=== PATIENT | male | born 1990 | race Caucasian/White ===

== ENCOUNTER → 2018-02-09 | Outpatient (CLI) | payer OTHER ==
--- NOTE | 2018-02-09 15:49 | RADIOLOGY IMAGING REPORT ---
FACILITY: [facility] - [place] PATIENT NAME: Gregorio Hernandez : 1990 MR: [id number] V: [id number] EXAM DATE: ORDERING PHYSICIAN: QAMAR STEVENS TECHNOLOGIST: Location: [facility] Patient: Gregorio Hernandez : 1990 Visit/Account:[id number] Date of Sevice: 02/09/2018 2 VIEWS CHEST INDICATION: Sternal pain COMPARISON: None available FINDINGS: Heart size within normal limits. There is no focal infiltrate or lobar consolidation. There is no pneumothorax or pleural effusion. No acute osseous finding IMPRESSION: 1. No acute cardiopulmonary process. Report Dictated By: Garrett Hernandez MD at 02/09/2018 3:45 PM Report E-Signed By: Garrett Hernandez MD at 02/09/2018 3:46 PM WSN:[email or web address]
== END ==
LOC: RAD 15:12
PROVIDERS: ATTEND Emergency Medicine Sports Medicine
DX: R07.9 Chest pain, unspecified (principal)
CPT/HCPCS: 71046

== ENCOUNTER → 2018-11-04 | Outpatient (CLI) | payer OTHER ==
--- NOTE | 2018-11-04 11:28 | RADIOLOGY IMAGING REPORT ---
FACILITY: [facility] PATIENT NAME: Gregorio Hernandez : 1990 MR: [id number] V: [id number] EXAM DATE: ORDERING PHYSICIAN: QAMAR STEVENS TECHNOLOGIST: Location: [facility] - [place] Patient: Gregorio Hernandez : 1990 Visit/Account:[id number] Date of Sevice: 11/04/2018 CT CHEST W/O CONTRAST History: Sternum injury/fracture April 12, ongoing pain TECHNIQUE: Contiguous axial images were performed through the chest to the level of the adrenal gla nds. No IV contrast was administered. Coronal and sagittal reformatting was also performed.Dose Lower ing Technique One of the following dose optimization techniques was utilized in the performance of this exam: Autom ated exposure control; adjustment of the mA and/or kV according to the patient's size; or use of an i terative reconstruction technique. Specific details can be referenced in the facility's radiology C T exam operational policy. COMPARISON STUDIES: none. Lungs / Pleura: negative. Mediastinum/nodes: There is a small amount of soft tissue density material in the anterior mediastin um with a triangular shaped borders which likely represents a small amount of residual thymus Heart and vessels: negative. Musculoskeletal / Body wall: There is sclerosis of the adjacent surfaces at the junction of the man ubrium and body of the sternum. There is a tiny bony density projecting just to the right of the declan rnomanubrial junction which may represent an old tiny fracture. Upper abdomen: Visualized abdominal viscera negative. IMPRESSION: Small amount soft tissue density material in the anterior mediastinum with irregular shaped borders l ikely represents a small amount of residual thymus There is sclerosis of the adjacent surfaces at the junction of the manubrium and body of the sternum. I history the patient did have sternal trauma 04/12. This may be the sequelae of old trauma. A ti ny bony density projects just to the right of the manubrial sternal junction which may be the sequela e of old trauma as well. Report Dictated By: Jojo Serrato MD at 11/04/2018 11:14 AM Report E-Signed By: Jojo Serrato MD at 11/04/2018 11:21 AM WSN:[email or web address]
== END ==
LOC: CT 00:22
PROVIDERS: ATTEND Emergency Medicine Sports Medicine
DX: R07.9 Chest pain, unspecified (principal); R07.89 Other chest pain
CPT/HCPCS: 71250